=== PATIENT | male | born 1955 | race Caucasian/White ===

== ENCOUNTER → 2017-04-04 | Outpatient (CLI) | payer OTHER ==
--- NOTE | ~2017-04-04 | CT55 ---
[facility] A Service of [facility] RADIOLOGY TEXT RESULTS PATIENT: RODDY PAGE LOCATION: [facility] EDT : 53 UNIT #: [id number] AGE: [address]: Eric Merlos MD SEX: M ORDER DR: [id number] [facility]. [place], [place] [address] [id number] O MR#: [id number] Acc #: [id number] NAME: RODDY PAGE : 1955 SEX: M STUDY DATE/TIME: 04/04/2017 9:17 UNIT: [facility] EDT ROOM: STUDY DESCRIPTION: CT Chest W Con Attending Physician: Eric Merlos M.D. Referring Physician: Eric Merlos M.D. Ordering Physician: Eric Merlos M.D. Primary Care Physician: Eric Merlos M.D. MEDICAL IMAGING REPORT This report is preliminary unless electronic signature is present EXAM CT chest with contrast INDICATION Abnormal chest radiograph showing a left upper lobe pulmonary nodule. This was performed on March 17, [address] images were obtained from the thoracic inlet through the dome of the diaphragm following administration of intravenous contrast. This CT exam was performed with one or more of the following radiation dose reduction techniques: automatic exposure control, adjustment of mA and/or kV according to patient size, and iterative reconstruction. FINDINGS The patient has a 1.6 cm left upper lobe pulmonary nodule which is indeterminate. It certainly could reflect malignancy in this patient has background emphysematous changes. Further evaluation with PET is recommended. No additional pulmonary nodules or masses are identified. There is a low-attenuation lesion seen within the right lobe of the thyroid gland. This measures about 1.0 cm. Trachea and esophagus appear unremarkable. There is no pleural or pericardial effusion. Mediastinal lymph nodes do not appear pathologically enlarged. Thoracic aorta measures within normal size limits. There are some coronary artery calcifications. Images through the upper abdomen demonstrate diffuse hepatic steatosis. No other acute abnormality is seen within the upper abdomen. [facility] A Service of [facility] RADIOLOGY TEXT RESULTS PATIENT: RODDY PAGE LOCATION: [facility] : 53 UNIT #: [id number] AGE: [address]: Eric Merlos MD SEX: M ORDER DR: Review of bony windows does not demonstrate any aggressive osseous abnormalities. IMPRESSION 1. Today's CT confirms the presence of 1.6 cm noncalcified pulmonary nodule at the left lung apex. This is indeterminate but certainly malignancy should be considered in the this patient with background emphysematous changes, further evaluation with PET is recommended. 2. 1.0 cm low-attenuation lesion seen arising from the posterior aspect the right lobe of the thyroid gland. This can be better assessed with dedicated thyroid ultrasound. 3. Diffuse hepatic steatosis. Dictated by... Sharlene Corona M.D. THIS IS AN ELECTRONICALLY VERIFIED REPORT Sharlene Corona M.D. at 04/05/2017 5:42 PM CHRISTIAN/prince TD: 04/05/2017 02:38 JOB #: [id number] MEDICAL IMAGING REPORT Page 1 of 1 COPY
[2017-04-04 10:01] LABS: POC - CREATININE 1.32 mg/dL (0.64-1.27)
== END | disposition home or self-care (01) ==
LOC: CCAT 08:25
DX: R93.8 Abnormal findings on diagnostic imaging of other specified body structures (principal); R91.1 Solitary pulmonary nodule; K76.0 Fatty (change of) liver, not elsewhere classified; E07.89 Other specified disorders of thyroid
CPT/HCPCS: 71260; 82565; Q9967

== ENCOUNTER → 2017-05-02 | Outpatient (CLI) | payer OTHER ==
--- NOTE | ~2017-05-02 | US128 ---
[id number] [facility]. [place], [place] [address] [id number] O MR#: [id number] Acc #: [id number] NAME: RODDY PAGE : 1955 SEX: M STUDY DATE/TIME: 05/02/2017 15:11 UNIT: [facility]US ROOM: STUDY DESCRIPTION: Thyroid Attending Physician: Eric Merlos M.D. Referring Physician: Eric Merlos M.D. Ordering Physician: Eric Merlos M.D. Primary Care Physician: Eric Merlos M.D. MEDICAL IMAGING REPORT This report is preliminary unless electronic signature is present EXAM Ultrasound of the thyroid gland INDICATIONS This patient had a PET CT performed on April 14, 2017 which showed a right thyroid nodule. This a followup study. TECHNIQUE Phillips-scale and color Doppler sonographic images were obtained through the thyroid gland. FINDINGS Right lobe of the thyroid gland measures 4.3 x 2.5 x 1.9 cm; left lobe measures 3.9 x 1.7 x 1.5 cm; the isthmus measured about 4 mm in thickness. This patient has a cyst within the superior pole of the right lobe of thyroid gland measuring 5 x 4 x 5 mm. Mixed solid and cystic nodule is seen inferiorly and posteriorly within the right lobe of the thyroid gland measuring 1.6 x 1.3 x 1.2 cm. This nodule is predominantly cystic. There is also a tiny cyst within the left lobe of thyroid gland which measures 3 x 3 x 4 mm. IMPRESSION Area of concern on recent PET CT corresponds to a predominantly cystic nodule, which measures up to 1.6 x 1.3 x 1.2 cm. Patient is also noted at 2 additional suspected cysts, one within the right lobe and the other within the left lobe. Short-term sonographic followup in 6 months suggested. None of these meet size criteria for percutaneous sampling. Dictated by... Sharlene Corona M.D. THIS IS AN ELECTRONICALLY VERIFIED REPORT Sharlene Corona M.D. at 05/03/2017 4:47 PM AFF/to TD: 05/02/2017 22:56 JOB #: [id number] MEDICAL IMAGING REPORT Page 1 of 1 COPY
== END | disposition home or self-care (01) ==
LOC: CGUS 14:14
DX: E04.1 Nontoxic single thyroid nodule (principal)
CPT/HCPCS: 76536